=== PATIENT | male | born 1945 | race Caucasian/White ===

== ENCOUNTER 2022-01-28 07:09 | Observation (INO) | payer MEDICARE, MEDICAID, SELFPAY ==
[2022-01-28] VITALS (13 sets, daily range): BP systolic 111–172; BP diastolic 63–101; PULSE 64–95; RESP 13–24; TEMP 36.7–37.1; O2SAT 91–96; BMI 27.0; BMI 31.2
--- NOTE | 2022-01-28 07:10 | CTR_ITS ---
PROCEDURE INFORMATION: Exam: CT Head Without Contrast Exam date and time: 01/28/2022 7:09 AM Age: 73 years old Clinical indication: Weakness, extremity; Right; Additional info: Right side weakness TECHNIQUE: Imaging protocol: Computed tomography of the head without contrast. Radiation optimization: All CT scans at this facility use at least one of these dose optimization techniques: automated exposure control; mA and/or kV adjustment per patient size (includes targeted exams where dose is matched to clinical indication); or iterative reconstruction. Other technique: STROKE PROTOCOL was implemented. COMPARISON: No relevant prior studies available. RADIATION DOSE METRICS: Total DLP (mGy-cm): 1091.78 FINDINGS: Brain: No acute hemorrhage identified. No large territorial areas of hypoattenuation concerning for ischemic infarct identified. No intracranial mass effect. Subcortical, subinsular, and periventricular white matter hypoattenuation likely consistent with mild chronic microvascular ischemic disease. Cerebral ventricles: The ventricles are within normal limits. Paranasal sinuses: The visualized sinuses are unremarkable. Mastoid air cells: The visualized mastoid air cells are well aerated. Bones/joints: The osseous structures are intact. Soft tissues: Unremarkable. CT/CT head wo con* [id number] IMPRESSION: 1. No acute intracranial abnormality. 2. Mild chronic microvascular ischemic disease. ASSESSMENT: ASPECTS ([place] Stroke Program Early CT Score) is 10.
--- NOTE | 2022-01-28 07:15 | CTR_ITS ---
PROCEDURE INFORMATION: Exam: CTA Head With Contrast, Arteriography Exam date and time: 01/28/2022 8:46 AM Age: 76 years old Clinical indication: Weakness; Additional info: R sided weakness TECHNIQUE: Imaging protocol: Computed tomographic angiography of the head with contrast. Exam focused on the arteries. 3D rendering (Not supervised by radiologist): MIP and/or 3D reconstructed images were created by the technologist. Radiation optimization: All CT scans at this facility use at least one of these dose optimization techniques: automated exposure control; mA and/or kV adjustment per patient size (includes targeted exams where dose is matched to clinical indication); or iterative reconstruction. Contrast material: OMNI 350; Contrast volume: 95 ml; Contrast route: INTRAVENOUS (IV); COMPARISON: CT head wo con* [id number] 01/28/2022 7:09 AM RADIATION DOSE METRICS: Total DLP (mGy-cm): 514.2 FINDINGS: ANTERIOR CIRCULATION: Right internal carotid artery: Unremarkable. Intracranial segment is patent with no significant stenosis. No aneurysm. Right middle cerebral artery: Unremarkable. No occlusion or significant stenosis. No aneurysm. Right anterior cerebral artery: Unremarkable. No occlusion or significant stenosis. No aneurysm. Left internal carotid artery: Unremarkable. Intracranial segment is patent with no significant stenosis. No aneurysm. Left middle cerebral artery: Unremarkable. No occlusion or significant stenosis. No aneurysm. Left anterior cerebral artery: Unremarkable. No occlusion or significant stenosis. No aneurysm. POSTERIOR CIRCULATION: Right vertebral artery: Narrowing of the right vertebral artery at the entrance to the skull base with the left vertebral artery remaining dominant. The remainder of the right vertebral artery is unremarkable. Left vertebral artery: Left vertebral artery is dominant compared to the right. Basilar artery: Unremarkable. No occlusion or significant stenosis. No aneurysm. Right posterior cerebral artery: Unremarkable. No occlusion or significant stenosis. No aneurysm. Left posterior cerebral artery: Unremarkable. No occlusion or significant stenosis. No aneurysm. Brain: No definite mass, mass effect, or midline shift. Cerebral ventricles: No ventriculomegaly. Bones/joints: Unremarkable. No acute fracture. Soft tissues: Unremarkable. PROCEDURE INFORMATION: Exam: CTA Neck With Contrast Exam date and time: 01/28/2022 8:46 AM Age: 76 years old Clinical indication: Weakness; Additional info: R sided weakness TECHNIQUE: Imaging protocol: Computed tomographic angiography of the neck with contrast. 3D rendering (Not supervised by radiologist): MIP and/or 3D reconstructed images were created by the technologist. Radiation optimization: All CT scans at this facility use at least one of these dose optimization techniques: automated exposure control; mA and/or kV adjustment per patient size (includes targeted exams where dose is matched to clinical indication); or iterative reconstruction. Contrast material: OMNI 350; Contrast volume: 95 ml; Contrast route: INTRAVENOUS (IV); COMPARISON: CT head wo con* [id number] 01/28/2022 7:09 AM RADIATION DOSE METRICS: Total DLP (mGy-cm): 514.2 FINDINGS: Right common carotid artery: No stenosis. No dissection or occlusion. Right internal carotid artery: Calcified atherosclerotic disease at the origin of the right internal carotid artery causing moderate short segment stenosis. Right external carotid artery: No occlusion or stenosis of the origin. Left common carotid artery: No stenosis. No dissection or occlusion. Left internal carotid artery: No stenosis of the extracranial segment. No dissection or occlusion. Left external carotid artery: No occlusion or stenosis of the origin. Right vertebral artery: No stenosis. No dissection or occlusion. Left vertebral artery: No stenosis. No dissection or occlusion. Thyroid: Multiple hypoattenuating nodules noted in the thyroid, the largest of which measures up to approximately 1 cm on the left. Soft tissues: Normal. No significant soft tissue swelling. Bones/joints: No acute fracture. Lungs: Respiratory motion limiting fine pulmonary detail. CT/CT angio headneck* [id number] IMPRESSION: No significant arterial abnormality identified in the brain. IMPRESSION: Moderate short segment stenosis in the proximal right internal carotid artery. COMMENTS: Consistent with the [employer]'s Incidental Findings Committee white paper (J Am Andrzej Radiol 2015): In patients aged 35 years and older with an incidental thyroid nodule equal to or greater than 1.[address], MRI or extrathyroidal US, further evaluation with dedicated thyroid US is recommended for patients with normal life expectancy and without comorbidities. For smaller nodules without suspicious features, no further evaluation or follow up is recommended. REFERENCES: NASCET CRITERIA. The degree of internal carotid artery stenosis is based on NASCET criteria. Normal is no stenosis. Mild is less than 50% stenosis. Moderate is 50-69% stenosis. Severe is 70% to 99% stenosis. Total occlusion is no detectable patent lumen.
--- NOTE | 2022-01-28 07:15 | ECG_ITS ---
[facility] Test Date: 2022-01-28 Pat Name: Stu Mcgrath Department: Room: Gender: Male Titrator: : 1945 Requested By: Dante Barone Order Number: [id number] Otf MD: Yuni Sheets M.D. Measurements Intervals [place] Rate: 80 P: IN: QRS: 72 QRSD: 109 T: 3 QT: 365 QTc: 423 Interpretive Statements ATRIAL FIBRILLATION INCOMPLETE RIGHT BUNDLE BRANCH BLOCK [90+ ms QRS DURATION, TERMINAL R IN V1/V2, 40+ ms S IN I/aVL/V4/V5/V6] NONSPECIFIC ST & T-WAVE ABNORMALITY ABNORMAL RHYTHM ECG No previous ECG available for comparison Electronically Signed On 01-30-2022 8:03:06 CDT by Yuni Sheets M.D. [id number] connor
--- NOTE | 2022-01-28 07:17 | W.ED.NEUROSD ---
HPI - Neuro Symptoms/Deficit General: Chief Complaint: Neuro Symptoms/Deficit Stated Complaint: RIGHT SIDE WEAKNESS Time Seen by Provider: 01/28/22 07:09 Source: patient Mode of arrival: ambulatory History of Present Illness: 76-year-old male presents via EMS. Reported that he awoke around 6 AM in his normal state and then started vomiting and had some right sided facial droop and right arm drift EMS was called. They verified these findings on the scene however noticed doing bedside stroke score medic was at the bedside and reported that his deficits that were present previously had resolved as he watched me do the NIH scoring. Patient is awake and alert. He answers all questions appropriately there is a little bit of a knowledge deficit and following directions but the remainder of his testing is normal. Even if his assigned a point for not following directions he has an NIH score of only 1 and I believe this is a knowledge deficit rather than a new focal deficit. He otherwise is asymptomatic he denies chest pain or shortness of breath patient does have a history of atrial fibrillation and tells me he is on a blood thinner but does not know the name of it. Onset (ago): hour(s) Time: 07:09 Last Observed Normal: 06:00 Location: speech, left face and left arm History of same: No Severity: mild Quality: weak Relieving factors: time Exacerbating factors: none Context: sudden onset Associated symptoms: Deny chest pain, cough, diaphoresis, fevers/chills, headache(s), anorexia, malaise, nausea, seizures, short of breath, syncope, tingling, vertigo, vomiting or weakness Treatments Prior to Arrival: none Review of Systems Const: Denies: fever(s), chills, fatigue, malaise or diaphoresis ENMT: Denies: throat pain, ear or mastoid pain, nasal discharge or nasal congestion Card: Denies: chest pain, palpitations or syncope Resp: Denies: dyspnea, productive cough or non-productive cough GI: Denies: nausea or vomiting : Denies: flank pain, dysuria, urinary frequency or urinary urgency Skin/Breast: Denies: rash or pruritus Neuro: Denies: headache(s) or vertigo NIH stroke score NIHSS: Level Of Consciousness - 1a: 0 Level Of Consciousness Questions - 1b: Both Correct Level Of Consciousness Commands - 1c: Both Correct Best Gaze - 2: Normal (Does not appear to be any deficits however patient has difficulty understanding the test) Visual Lipscomb - 3: No Visual Loss Facial Palsy - 4: Normal Motor Arm Right - 5: No Drift Motor Arm Left - 5: No Drift Motor Leg Right - 6: No Drift Motor Leg Left - 6: No Drift Limb Ataxia - 7: Absent Sensory - 8: Normal Best Language - 9: No Aphasia Dysarthia - 10: Normal Extinction And Inattention - 11: 1 (Patient has difficult time understanding instructions and following commands but will do it with reinforcement) Score: Total Score: 1 Course Vital Signs: Vital signs: Vital Signs Temperature 98.8 F 01/28/22 07:21 Pulse Rate 95 01/28/22 10:57 Respiratory Rate 21 H 01/28/22 10:57 Blood Pressure 169/89 01/28/22 10:57 Pulse Oximetry 92 01/28/22 10:57 Oxygen Delivery Me thod 01/28/22 10:57 Oxygen Flow Rate 2 01/28/22 10:57 MDM - Neuro Symptoms/Deficit Medical Decision Making Line Supply that initially seen the patient in the field is at the bedside when I did my NIH score. He is describing deficits that have resolved and 1 witnessing are scoring he identified the deficits that had resolved. Get a stroke score of 1 at the time I see him in the bedside but the medics had a stroke score of from her description sounds like about a 6 or 7. He did resolve relatively quickly and his CTA of his head is negative. He is already on Pradaxa. There is no emboli or large vessel occlusions only some moderate stenosis. Discussed with neurology we will go and observe patient make any adjustments needed for secondary prevention. Medical Records I reviewed the patient's medical records. Lab Data I reviewed the patient's lab results. : 01/28/22 06:50 01/28/22 06:[address] 01/28/22 07:10 IMPRESSION: 1. No acute intracranial abnormality. 2. Mild chronic microvascular ischemic disease. ASSESSMENT: ASPECTS ([place] Stroke Program Early CT Score) is 10. Head/Neck CTA 01/28/22 07:15 IMPRESSION: No significant arterial abnormality identified in the brain. IMPRESSION: Moderate short segment stenosis in the proximal right internal carotid artery. COMMENTS: Consistent with the [employer]'s Incidental Findings Committee white paper (J Am Andrzej Radiol 2015): In patients aged 35 years and older with an incidental thyroid nodule equal to or greater than 1.[address], MRI or extrathyroidal US, further evaluation with dedicated thyroid US is recommended for patients with normal life expectancy and without comorbidities. For smaller nodules without suspicious features, no further evaluation or follow up is recommended. REFERENCES: NASCET CRITERIA. The degree of internal carotid artery stenosis is based on NASCET criteria. Normal is no stenosis. Mild is less than 50% stenosis. Moderate is 50-69% stenosis. Severe is 70% to 99% stenosis. Total occlusion is no detectable patent lumen. Chest X-Ray 01/28/22 10:50 IMPRESSION: No acute findings. Laboratory Results WBC 6.1 10^3/uL (4.0-10.0) 01/28/22 06:50 RBC 4.87 10^6/uL (4.1-5.3) 01/28/22 06:50 Hgb 12.9 g/dL (11.7-16.6) 01/28/22 06:50 Hct 39.7 % (42.0-52.0) L 01/28/22 06:50 MCV 81.5 fl (80-94) 01/28/22 06:50 MCH 26.5 pg (28.0-34.0) L 01/28/22 06:50 MCHC 32.5 g/dL (30.0-36.0) 01/28/22 06:50 RDW 16.5 % (12.1-15.1) H 01/28/22 06:50 Plt Count 234 10^3/cmm (130-400) 01/28/22 06:50 MPV 10.1 fL (7.4-10.4) 01/28/22 06:50 Neut % (Auto) 48.7 % 01/28/22 06:50 Lymph % (Auto) 26.5 % 01/28/22 06:50 [place] % (Auto) 22.5 % 01/28/22 06:50 Eos % (Auto) 1.5 % 01/28/22 06:50 Baso % (Auto) 0.5 % 01/28/22 06:50 Neut # (Auto) 2.98 10^3/uL (1.8-7.7) 01/28/22 06:50 Lymph # (Auto) 1.6 10^3/uL (0.8-4.8) 01/28/22 06:50 [place] # (Auto) 1.4 10^3/uL (0.2-0.9) H 01/28/22 06:50 Eos # (Auto) 0.1 10^3/uL (0.0-0.8) 01/28/22 06:50 Baso # (Auto) 0.0 10^3/uL (0.0-0.1) 01/28/22 06:50 Nucleated RBC % (auto) 0 % 01/28/22 06:50 Nucleated RBCs # 0.0 /100WBC 01/28/22 06:50 PT 16.20 SECONDS (12.1-14.9) H 01/28/22 06:50 INR 1.27 (0.8-1.2) H 01/28/22 06:50 APTT 40.5 SECONDS (23.9-36.7) H 01/28/22 06:50 Sodium 132 mmol/L (136-145) L 01/28/22 06:50 Potassium 3.6 mmol/L (3.5-5.1) 01/28/22 06:50 Chloride 93 mmol/L (98-107) L 01/28/22 06:50 Carbon Dioxide 23 mmol/L (22-29) 01/28/22 06:50 Anion Gap 19.6 (5-19) H 01/28/22 06:50 BUN 13 mg/dL (8-23) 01/28/22 06:50 Creatinine 1.3 mg/dL (0.7-1.2) H 01/28/22 06:50 GFR Calculation Not Reportable 01/28/22 06:50 Glucose 159 mg/dL (65-115) H 01/28/22 06:50 POC Glucose 165 mg/dL (70-110) H 01/28/22 07:24 Calculated Osmolality 277 mOsm/kg (285-295) L 01/28/22 06:50 Calcium 9.3 mg/dL (8.5-10.5) 01/28/22 06:50 Total Bilirubin 0.4 mg/dL (0.15-1.2) 01/28/22 06:50 AST 20 U/L (0-40) 01/28/22 06:50 ALT 18 U/L (0-41) 01/28/22 06:50 Alkaline Phosphatase 97 U/L (40-130) 01/28/22 06:50 Total Protein 7.2 g/dL (6.6-8.7) 01/28/22 06:50 Albumin 4.6 g/dL (3.5-5.2) 01/28/22 06:50 Globulin 2.6 g/dL (1.3-4.6) 01/28/22 06:50 Urine Color Straw (Yellow) 01/28/22 07:54 Urine Appearance Clear (CLEAR) 01/28/22 07:54 Urine pH 7 (5-7) 01/28/22 07:54 Ur Specific [place] 1.005 (1.005-1.030) 01/28/22 07:54 Urine Protein 3+ (Negative) H 01/28/22 07:54 Urine Glucose (UA) Norm (Normal) 01/28/22 07:54 Urine Ketones 1+ (Negative) H 01/28/22 07:54 Urine Blood 2+ (Negative) H 01/28/22 07:54 Urine Nitrate Negative (Negative) 01/28/22 07:54 Urine Bilirubin Neg (Negative) 01/28/22 07:54 Urine Urobilinogen Norm mg/dL (Negative) 01/28/22 07:54 Ur Leukocyte Esterase Negative (Negative) 01/28/22 07:54 Urine RBC 10-15 /hpf (0-2) H 01/28/22 07:54 Urine WBC 0-4 /hpf (0-5) H 01/28/22 07:54 Ur Squamous Epith Cells Rare /hpf (0-5) 01/28/22 07:54 Amorphous Sediment Not Reportable 01/28/22 07:54 Urine Bacteria Trace /hpf (NONE) 01/28/22 07:54 Urine Mucus Trace /hpf 01/28/22 07:54 Urine Opiates Screen Negative ng/mL (Negative) 01/28/22 07:54 Ur Barbiturates Screen Negative ng/mL (Negative) 01/28/22 07:54 Ur Phencyclidine Scrn Negative ng/mL (Negative) 01/28/22 07:54 Ur Amphetamines Screen Negative ng/mL (Negative) 01/28/22 07:54 U Benzodiazepines Scrn Negative ng/mL (Negative) 01/28/22 07:54 Urine Cocaine Screen Negative ng/mL (Negative) 01/28/22 07:54 U Marijuana (THC) Screen Negative ng/mL (Negative) 01/28/22 07:54 Discharge Plan Discharge Patient Disposition: Placed in Observation Clinical Impression: Transient cerebral ischemia Condition: Stable Prescriptions: No Action furosemide 40 mg tablet 40 mg PO DAILY metformin 500 mg tablet 500 mg PO BID hydralazine 25 mg tablet 25 mg PO BID omeprazole 40 mg capsule,delayed release(DR/EC) 40 mg PO BID potassium chloride 20 mEq tablet,ER particles/crystals 20 meq PO BID tamsulosin 0.4 mg capsule 0.4 mg PO BID amlodipine 10 mg tablet 10 mg PO DAILY aspirin 81 mg Tablet,Chewable 81 mg PO EVERY OTHER DAY lisinopril 40 mg tablet 40 mg PO DAILY rosuvastatin 10 mg tablet 10 mg PO DAILY Pradaxa 150 mg capsule 150 mg PO BID Coding Level of Care Code ED Telephone Clerks Supervisor for Libby Sandoval
[2022-01-28 07:28] LABS: Glucose Point of Care 165 mg/dL (70-110)
[2022-01-28 08:06] LABS: Basophils % 0.5 %; Eosinophils # 0.1 10^3/uL (0.0-0.8); Eosinophils % 1.5 %; Hematocrit 39.7 % (42.0-52.0); Hemoglobin 12.9 g/dL (11.7-16.6); Lymphocytes # 1.6 10^3/uL (0.8-4.8); Lymphocytes % 26.5 %; Mean Corpuscular HGB Conc 32.5 g/dL (30.0-36.0); Mean Corpuscular Hemoglobin 26.5 pg (28.0-34.0); Mean Corpuscular Volume 81.5 fl (80-94); Mean Platelet Volume 10.1 fL (7.4-10.4); Monocytes # 1.4 10^3/uL (0.2-0.9); Monocytes % 22.5 %; Neutrophils # 2.98 10^3/uL (1.8-7.7); Neutrophils % 48.7 %; Nucleated Red Blood Cells % 0 %; Platelet Count 234 10^3/cmm (130-400); Red Blood Count 4.87 10^6/uL (4.1-5.3); Red Cell Distribution Width 16.5 % (12.1-15.1); White Blood Count 6.1 10^3/uL (4.0-10.0)
[2022-01-28 08:16] LABS: Amphetamines Screen Urine Negative (Negative); Barbiturates Screen Urine Negative (Negative); Benzodiazepines Screen Urine Negative (Negative); Cocaine Screen Urine Negative (Negative); Opiate Screen Urine Negative (Negative); PCP Screen Urine Negative (Negative); THC Screen Urine Negative (Negative)
[2022-01-28 08:30] LABS: INR 1.27 (0.8-1.2)
[2022-01-28 08:31] LABS: Partial Thromboplastin Time 40.5 SECONDS (23.9-36.7)
[2022-01-28 08:34] LABS: Alanine Aminotransferase 18 U/L (0-41); Albumin Level 4.6 g/dL (3.5-5.2); Alkaline Phosphatase 97 U/L (40-130); Anion Gap 19.6 (5-19); Aspartate Amino Transferase 20 U/L (0-40); Blood Urea Nitrogen 13 mg/dL (8-23); Calcium 9.3 mg/dL (8.5-10.5); Carbon Dioxide 23 mmol/L (22-29); Chloride 93 mmol/L (98-107); Globulin 2.6 g/dL (1.3-4.6); Glucose 159 mg/dL (65-115); Osmolality Calculated 277 mOsm/kg (285-295); Potassium 3.6 mmol/L (3.5-5.1); Sodium 132 mmol/L (136-145); Total Bilirubin 0.4 mg/dL (0.15-1.2); Total Protein 7.2 g/dL (6.6-8.7)
[2022-01-28 08:38] LABS: Blood Urine 2+ (Negative); Glucose Urine UA Norm (Normal); Ketones Urine 1+ (Negative); Protein Urine 3+ (Negative); Specific Gravity, Urine 1.005 (1.005-1.030); Urine Appearance Clear (CLEAR); Urine Color Straw (Yellow); pH Urine 7 (5-7)
[2022-01-28 08:39] LABS: Add Urine Microscopic? YES; Bilirubin Urine Neg (Negative); Leukocyte Esterase Urine Negative (Negative); Nitrate Urine Negative (Negative); Urobilinogen Urine Norm (Negative)
[2022-01-28 08:40] LABS: Bacteria Urine TRACE /hpf; Squamous Epithelial Cell Urine RARE /hpf (0-5); WBC Urine 0-4 /hpf (0-5)
[2022-01-28 08:41] LABS: Add Urine Culture? Yes; Mucus Urine TRACE /hpf
[2022-01-28] MEDS: iohexol 350 mg/mL 100 mL Btl IV (08:51)
[2022-01-28] MEDS: ondansetron 2 mg/ML SDV 2 mL 4 MG IVP (09:19)
--- NOTE | 2022-01-28 10:50 | XRR_ITS ---
PROCEDURE INFORMATION: Exam: XR Chest Exam date and time: 01/28/2022 10:56 AM Age: 76 years old Clinical indication: Cough and dyspnea; Additional info: Dyspnea/cough TECHNIQUE: Imaging protocol: Radiologic exam of the chest. Views: 1 view. COMPARISON: CT angio headneck* [id number] 01/28/2022 8:46 AM FINDINGS: Lungs: Granuloma is noted in the right upper lobe . Are are No consolidation. Pleural spaces: Unremarkable. No pleural effusion. No pneumothorax. Heart/Mediastinum: Unremarkable. No cardiomegaly. Bones/joints: Unremarkable. XR/XR chest 1V portable [id number] IMPRESSION: No acute findings.
[2022-01-28] MEDS: acetaminophen 325 mg Tablet 650 MG PO (12:22)
--- NOTE | 2022-01-28 15:34 | PC.NURSE ---
patient had a witnessed fall without injury family and notified
[2022-01-28] MEDS: potassium chloride ER 20 mEq Tablet PO (17:31)
[2022-01-28] MEDS: pantoprazole DR 40 mg Tablet PO (17:31)
[2022-01-28] MEDS: tamsulosin 0.4 mg Capsule PO (17:31)
[2022-01-28] MEDS: metformin 500 mg Tablet PO (17:31)
[2022-01-28] MEDS: cefdinir 300 MG CAPSULE PO (17:31)
[2022-01-28] MEDS: hyDRALAzine 25 mg Tablet PO (17:31)
[2022-01-28 17:35] LABS: Glucose Point of Care 137 mg/dL (70-110)
[2022-01-28] MEDS: sodium chloride 0.9% 1,000 ML 100 ML IV (17:36)
--- NOTE | 2022-01-28 20:23 | P.HP_ITS ---
Providers/Chief Complaint Admitting Physician: Jonathon Mckeon DO Chief Complaint: RIGHT SIDE WEAKNESS History of Present Illness Stu Mcgrath Jr is a 76 year old male with history of atrial fibrillation hypertension CHF and diabetes. With and daughter present I get a different story than given to the emergency room. was with patient this morning. To go to use the toilet, and he passed out. Patient has history of multiple syncopal events previously. Both and daughter who is an RN states that work-up has been negative with no etiology found. This includes a loop recorder. and daughter state the patient was unconscious for 25 minutes. He had a pulse and respirations that were normal. EMS was called. Per the daughter EMS thought maybe he could have a stroke because of a facial droop on the right. The patient is unable to give me a history. He is a bit confused. As per ER notes there was no focal deficit. CT head showed no cute changes. Positive chronic microvascular ischemic disease. At the time of my exam patient denies any complaints. He has been feeling well prior to this. No fever chills vomiting diarrhea. No cough no chest pain patient did have a mild headache that was imaged with Tylenol Review of Systems Const: Denies: fever(s) or chills Eyes: Denies: change in vision ENMT: Denies: throat pain or nasal congestion Card: Denies: chest pain or palpitations Resp: Denies: dyspnea or productive cough GI: Denies: abdominal pain, nausea, vomiting or change in stool character : Denies: difficulty urinating or dysuria Musc: Denies: back pain or extremity pain Skin/Breast: Denies: rash or lesions Neuro: Denies: dizziness Psych: Denies: anxiety or depression Faustino/Lymph: Denies: easy bruising or easy bleeding Medications/Allergies Home Medications Medication Instructions Recorded Confirmed Last Taken Type amlodipine 10 mg tablet 10 mg PO DAILY 01/28/22 01/28/22 01/27/22 History aspirin 81 mg chewable tablet 81 mg PO EVERY OTHER DAY 01/28/22 01/28/22 01/27/22 History dabigatran etexilate 150 mg 150 mg PO BID 01/28/22 01/28/22 01/27/22 History capsule (Pradaxa) furosemide 40 mg tablet 40 mg PO DAILY 01/28/22 01/28/22 01/27/22 History hydralazine 25 mg tablet 25 mg PO BID 01/28/22 01/28/22 01/27/22 History lisinopril 40 mg tablet 40 mg PO DAILY 01/28/22 01/28/22 01/27/22 History metformin 500 mg tablet 500 mg PO BID 01/28/22 01/28/22 01/27/22 History omeprazole 40 mg capsule,delayed 40 mg PO BID 01/28/22 01/28/22 01/27/22 History release potassium chloride 20 mEq 20 meq PO BID 01/28/22 01/28/22 01/27/22 History tablet,extended release(part/cryst) rosuvastatin 10 mg tablet 10 mg PO DAILY 01/28/22 01/28/22 01/27/22 History tamsulosin 0.4 mg capsule 0.4 mg PO BID 01/28/22 01/28/22 01/27/22 History Allergies Allergy/AdvReac Type Severity Reaction Status Date / Time morphine Allergy Severe ADR-Confusi Verified 01/28/22 08:54 on Penicillins Allergy Severe Unknown Verified 01/28/22 08:58 piperacillin [From Zosyn] Allergy Severe Unknown Verified 01/28/22 08:58 tazobactam [From Zosyn] Allergy Severe Unknown Verified 01/28/22 08:58 clonidine Allergy Unknown Unknown Verified 01/28/22 08:58 Vitals/I&O/Wt Last Vital Signs Temp 98.4 F 01/28/22 16:41 Pulse 67 01/28/22 16:41 Resp 23 H 01/28/22 13:25 BP 166/93 01/28/22 16:41 Pulse Ox 93 01/28/22 16:41 O2 Del Method 01/28/22 14:43 O2 Flow Rate 2 01/28/22 10:57 Weight last 48 hrs Weight 98.883 kg Weight 92.986 kg Physical Exam Narrative: The EHR has no list of past medical surgical family or social history. Thus we will perform at this time. Past missed medical history: Syncopal episodes, hypertension, atrial fibrillation, CHF, diabetes, GERD, hyperlipidemia. Past surgical history: Noncontributory at this time. Family history: Noncontributory at age 76. Social history. Lives with . Daughter is an RN with hospice. Denies tobacco alcohol or other drug use. In general patient appears his stated age of 76 he is in no acute distress at time of exam patient is hard of hearing. HEENT head is normocephalic atraumatic pupils are equal to light and accommodation extraocular muscles are intact there is no scleral icterus TMs are clear mucous membranes of the nasal and pharyngeal mucosa are moist and pink Neck is supple no JVD carotid bruits and lymphadenopathy Chest rises symmetrically with inspiration heart regular rate controlled normal S1-S2 without loud murmur. Lungs clear to auscultation without wheezes rales or rhonchi Abdomen soft nontender nondistended positive bowel sounds normal male Extremities no clubbing cyanosis or edema Neurologic. During NIH SS exam. Patient could not initially state his correct age or the correct month. I think due to hearing issues he was not able to repeat my sentence. No facial droop. Was a right arm drift. Otherwise his strength and sensation was intact. NIHSS was 3. Lymphatic no lymphadenopathy noted. No lesions or rash Data : 01/28/22 06:50 01/28/22 06:50 Micro: Microbiology 01/28/22 08:23 Blood Culture - Preliminary Blood SPECIMEN COLLECTED 01/28/22 08:27 Blood Culture - Preliminary Blood SPECIMEN COLLECTED CT Head: My impression: Possible cerebellar atrophy. Small vessel disease-moderate Radiologist's impression: IMPRESSION: 1. No acute intracranial abnormality. 2. Mild chronic microvascular ischemic disease. Other Imaging: Radiologist's impression: CTA head and neck. Short summary is no occlusions or stenosis is seen. Note multiple hypoattenuating nodules noted in the thyroid the largest of which measures up to approximately 1 cm on the left. EKG 1: My Interpretation: Atrial fibrillation Process Design Chemical Engineer Interpretation: Not read by cardiology yet EKG computer-generated impression: A&P Assessment and plan (1) Syncope and collapse: Unknown etiology. Most common are neurologic or cardiovascular. Patient has had extensive work-up in the past with no etiology identified. Questionable orthostatic hypotension or relative orthostasis upon arising. Telemetry and close monitoring. No further work-up at this time since has been worked up extensively in the past. Status: Acute (2) Cerebellar atrophy: History taken was no alcohol usage but I will inquire about history thereof. May require outpatient neurology work-up. Status: Acute (3) Cerebrovascular small vessel disease: Most likely secondary to hypertension. Status: Acute (4) Atrial fibrillation, chronic: Rate controlled currently Status: Acute (5) Hypertension: Patient on amlodipine Lasix hydralazine lisinopril. With the amount of small vessel disease seen on CAT scan may need to allow permissive hypertension to avoid syncope and to promote proved cognition Status: Acute (6) Confusion: I will ask for speech eval for cognitive function Status: Acute (7) Memory loss: As above Status: Acute (8) Hyponatremia: Mild will trend Status: Acute (9) Abnormal serum creatinine level: Mildly elevated at 1.3 no prior to compare Status: Acute (10) Thyroid nodule greater than or equal to 1 cm in diameter incidentally noted on imaging study: Check TSH work-up as an outpatient. Status: Acute Attestations Medical Necessity Statement*: Patient admitted for observation and work-up. Coding Level of Care Code Acute Promotional Representative for Chg Fwd Diagnoses Syncope and collapse R55 Cerebellar atrophy G31.9 Cerebrovascular small vessel disease I67.9 Atrial fibrillation, chronic I48.20 Hypertension I10 Confusion R41.0 Memory loss R41.3 Hyponatremia E87.1 Abnormal serum creatinine level R79.89 Thyroid nodule greater than or equal to 1 cm in diameter incidentally noted on imaging study E04.1
[2022-01-28 21:13] LABS: Glucose Point of Care 153 mg/dL (70-110)
[2022-01-29] VITALS: BP 168/100; PULSE 92; RESP 12; TEMP 37; O2SAT 91
[2022-01-29] MEDS: sodium chloride 0.9% 1,000 ML 100 ML IV (03:38)
[2022-01-29 04:00] VITALS: BP 164/84; PULSE 90; RESP 14; TEMP 37.1; O2SAT 93
[2022-01-29 05:40] LABS: Estmated Average Glucose 163; Hemoglobin A1C 7.3 % (4.0-6.0)
[2022-01-29 05:52] LABS: Anion Gap 15.3 (5-19); Blood Urea Nitrogen 12 mg/dL (8-23); Calcium 8.6 mg/dL (8.5-10.5); Carbon Dioxide 23 mmol/L (22-29); Chloride 99 mmol/L (98-107); Glucose 139 mg/dL (65-115); Osmolality Calculated 280 mOsm/kg (285-295); Potassium 3.3 mmol/L (3.5-5.1); Sodium 134 mmol/L (136-145); Thyroid Stimulating Hormone 0.59 uIU/mL (0.27-4.20)
[2022-01-29 06:00] VITALS: PULSE 81
[2022-01-29 06:16] LABS: Glucose Point of Care 152 mg/dL (70-110)
[2022-01-29 08:00] VITALS: BP 161/94; PULSE 84; RESP 17; TEMP 36.6; O2SAT 92
[2022-01-29] MEDS: metformin 500 mg Tablet PO (10:47)
[2022-01-29] MEDS: pantoprazole DR 40 mg Tablet PO (10:47)
[2022-01-29] MEDS: potassium chloride ER 20 mEq Tablet PO (10:47)
[2022-01-29] MEDS: tamsulosin 0.4 mg Capsule PO (10:48)
[2022-01-29] MEDS: hyDRALAzine 25 mg Tablet PO (10:48)
[2022-01-29] MEDS: cefdinir 300 MG CAPSULE PO (10:49)
[2022-01-29] MEDS: atorvastatin 40 mg Tablet PO (10:52)
[2022-01-29 12:00] VITALS: BP 151/100; PULSE 92; RESP 18; TEMP 36.5; O2SAT 95
[2022-01-29 14:00] VITALS: PULSE 96
--- NOTE | 2022-01-29 14:26 | PM.DCS ---
Discharge Providers Date of Admission: 01/28/22 11:04 Date of Discharge: January 29, 2022 Attending Provider at Admission: Jonathon Mckeon DO Attending Provider at Discharge: Jonathon Mckeon DO Consults: none Diagnoses at Discharge Discharge Diagnosis (1) Syncope and collapse: Status: Acute (2) Cerebellar atrophy: Status: Acute (3) Cerebrovascular small vessel disease: Status: Acute (4) Atrial fibrillation, chronic: Status: Acute (5) Hypertension: Status: Acute (6) Confusion: Status: Acute (7) Memory loss: Status: Acute (8) Hyponatremia: Status: Acute (9) Abnormal serum creatinine level: Status: Acute (10) Thyroid nodule greater than or equal to 1 cm in diameter incidentally noted on imaging study: Status: Acute Reason for Visit Reason for Visit: RIGHT SIDE WEAKNESS Brief History: [facility] [employer] [facility] [employer] [address] History & Physical Report Signed Patient: Stu Mcgrath Jr MR#: [id number] : 1945 Age/Sex: 76 / M ADM Date: 01/28/22 Loc: [facility]? Room/Bed: [facility] Encounter Date: 01/28/[address]: Jonathon Mckeon DO Report Number: [id number] Providers/Chief Complaint Admitting Physicia n:?? Jonathon Mckeon DO ? Chief Complaint:?? RIGHT SIDE WEAKNES S History of Present Illness Stu Mcgrath Jr is a 76 year old male with history of atrial fibrillation hypertension CHF and diabetes.? With and daughter present I get a different story than given to the emergency room.? was with patient this morning.? To go to use the toilet, and he passed out.? Patient has history of multiple syncopal events previously.? Both and daughter who is an RN states that work-up has been negative with no etiology found.? This includes a loop recorder. and daughter state the patient was unconscious for 25 minutes.? He had a pulse and respirations that were normal.? EMS was called. Per the daughter EMS thought maybe he could have a stroke because of a facial droop on the right. The patient is unable to give me a history.? He is a bit confused. As per ER notes there was no focal deficit.? CT head showed no cute changes.? Positive chronic microvascular ischemic disease. At the time of my exam patient denies any complaints.? He has been feeling well prior to this.? No fever chills vomiting diarrhea.? No cough no chest pain patient did have a mild headache that was imaged with Tylenol Hospital Course Hospital Course Patient was admitted for I allowed permissive hypertension secondary to the moderate small vessel ischemic changes noted on CT scan of the head. I also noted cerebellar atrophy out of proportion to age-related changes. Patient has not had any further falls or syncopal events. I ordered PT OT and speech for evaluations. Patient agreed to physical therapy and was given instructions to assist with balance. However patient refused EXPENSE CLERK. I called the patient's daughter Peg who is an RN. I explained to her the findings on CAT scan. I suspect moderate atherosclerosis of the cerebral arteries and perhaps a neurodegenerative disease as well. He is notably confused at times. The daughter concurs with this. Recommend the next steps of speech-language pathology or a neurology consult or even a neuropsych consult to help with differentiating dementia from other neurodegenerative disease. Allow permissive hypertension to avoid all/syncope. Of note the patient's blood pressure was 111/87 around the time that he fell yesterday. Recommend goal systolic blood pressure 1 40-1 60. Goal diastolic less than 105. Patient was on 4 antihypertensives prior to admission. I have stopped Norvasc and hydralazine. I recommend cutting lisinopril in half to 20 mg daily and continuing Lasix 40 mg daily. Please follow-up with BMP and magnesium on Sunday. Physical Exam Narrative: NAD heart regular rate controlled normal S1-S2 without loud murmur. Lungs clear to auscultation without wheezes rales or rhonchi Abdomen soft nontender nondistended positive bowel sounds Extremities no clubbing cyanosis or edema Neurologic. Appears back to baseline. Which includes repetition of information. Discharge Data Studies Completed and Pending Completed Studies During Hospitalization Category Date Time Status CT angio headneck* [id number] Stat Cat Scan 01/28/22 07:[address] head wo con* [id number] Stat Cat Scan 01/28/22 07:10 Completed XR chest 1V portable [id number] Stat Exams 01/28/22 10:50 Completed Pending at discharge Category Date Time Status Basic Metabolic Panel AM LABS Lab 01/30/22 04:00 Ordered Basic Metabolic Panel AM LABS Lab 01/31/22 04:00 Ordered Blood Culture Stat Lab 01/28/22 08:23 Results Urine Culture Stat Lab 01/28/22 07:54 Results Radiology Impressions Head CT 01/28/22 07:10 IMPRESSION: 1. No acute intracranial abnormality. 2. Mild chronic microvascular ischemic disease. ASSESSMENT: ASPECTS ([place] Stroke Program Early CT Score) is 10. Head/Neck CTA 01/28/22 07:15 IMPRESSION: No significant arterial abnormality identified in the brain. IMPRESSION: Moderate short segment stenosis in the proximal right internal carotid artery. COMMENTS: Consistent with the [employer]'s Incidental Findings Committee white paper (J Am Andrzej Radiol 2015): In patients aged 35 years and older with an incidental thyroid nodule equal to or greater than 1.[address], MRI or extrathyroidal US, further evaluation with dedicated thyroid US is recommended for patients with normal life expectancy and without comorbidities. For smaller nodules without suspicious features, no further evaluation or follow up is recommended. REFERENCES: NASCET CRITERIA. The degree of internal carotid artery stenosis is based on NASCET criteria. Normal is no stenosis. Mild is less than 50% stenosis. Moderate is 50-69% stenosis. Severe is 70% to 99% stenosis. Total occlusion is no detectable patent lumen. Chest X-Ray 01/28/22 10:50 IMPRESSION: No acute findings. Laboratory Results WBC 6.1 10^3/uL (4.0-10.0) 01/28/22 06:50 RBC 4.87 10^6/uL (4.1-5.3) 01/28/22 06:50 Hgb 12.9 g/dL (11.7-16.6) 01/28/22 06:50 Hct 39.7 % (42.0-52.0) L 01/28/22 06:50 MCV 81.5 fl (80-94) 01/28/22 06:50 MCH 26.5 pg (28.0-34.0) L 01/28/22 06:50 MCHC 32.5 g/dL (30.0-36.0) 01/28/22 06:50 RDW 16.5 % (12.1-15.1) H 01/28/22 06:50 Plt Count 234 10^3/cmm (130-400) 01/28/22 06:50 MPV 10.1 fL (7.4-10.4) 01/28/22 06:50 Neut % (Auto) 48.7 % 01/28/22 06:50 Lymph % (Auto) 26.5 % 01/28/22 06:50 [place] % (Auto) 22.5 % 01/28/22 06:50 Eos % (Auto) 1.5 % 01/28/22 06:50 Baso % (Auto) 0.5 % 01/28/22 06:50 Neut # (Auto) 2.98 10^3/uL (1.8-7.7) 01/28/22 06:50 Lymph # (Auto) 1.6 10^3/uL (0.8-4.8) 01/28/22 06:50 [place] # (Auto) 1.4 10^3/uL (0.2-0.9) H 01/28/22 06:50 Eos # (Auto) 0.1 10^3/uL (0.0-0.8) 01/28/22 06:50 Baso # (Auto) 0.0 10^3/uL (0.0-0.1) 01/28/22 06:50 Nucleated RBC % (auto) 0 % 01/28/22 06:50 Nucleated RBCs # 0.0 /100WBC 01/28/22 06:50 PT 16.20 SECONDS (12.1-14.9) H 01/28/22 06:50 INR 1.27 (0.8-1.2) H 01/28/22 06:50 APTT 40.5 SECONDS (23.9-36.7) H 01/28/22 06:50 Sodium 134 mmol/L (136-145) L 01/29/22 05:04 Potassium 3.3 mmol/L (3.5-5.1) L 01/29/22 05:04 Chloride 99 mmol/L (98-107) 01/29/22 05:04 Carbon Dioxide 23 mmol/L (22-29) 01/29/22 05:04 Anion Gap 15.3 (5-19) 01/29/22 05:04 BUN 12 mg/dL (8-23) 01/29/22 05:04 Creatinine 0.8 mg/dL (0.7-1.2) 01/29/22 05:04 GFR Calculation Not Reportable 01/29/22 05:04 Glucose 139 mg/dL (65-115) H 01/29/22 05:04 POC Glucose 152 mg/dL (70-110) H 01/29/22 06:06 Estimat Average Glucose 163 01/29/22 05:04 Hemoglobin A1c 7.3 % (4.0-6.0) H 01/29/22 05:04 Calculated Osmolality 280 mOsm/kg (285-295) L 01/29/22 05:04 Calcium 8.6 mg/dL (8.5-10.5) 01/29/22 05:04 Total Bilirubin 0.4 mg/dL (0.15-1.2) 01/28/22 06:50 AST 20 U/L (0-40) 01/28/22 06:50 ALT 18 U/L (0-41) 01/28/22 06:50 Alkaline Phosphatase 97 U/L (40-130) 01/28/22 06:50 Total Protein 7.2 g/dL (6.6-8.7) 01/28/22 06:50 Albumin 4.6 g/dL (3.5-5.2) 01/28/22 06:50 Globulin 2.6 g/dL (1.3-4.6) 01/28/22 06:50 TSH 0.59 uIU/mL (0.27-4.20) 01/29/22 05:04 Urine Color Straw (Yellow) 01/28/22 07:54 Urine Appearance Clear (CLEAR) 01/28/22 07:54 Urine pH 7 (5-7) 01/28/22 07:54 Ur Specific [place] 1.005 (1.005-1.030) 01/28/22 07:54 Urine Protein 3+ (Negative) H 01/28/22 07:54 Urine Glucose (UA) Norm (Normal) 01/28/22 07:54 Urine Ketones 1+ (Negative) H 01/28/22 07:54 Urine Blood 2+ (Negative) H 01/28/22 07:54 Urine Nitrate Negative (Negative) 01/28/22 07:54 Urine Bilirubin Neg (Negative) 01/28/22 07:54 Urine Urobilinogen Norm mg/dL (Negative) 01/28/22 07:54 Ur Leukocyte Esterase Negative (Negative) 01/28/22 07:54 Urine RBC 10-15 /hpf (0-2) H 01/28/22 07:54 Urine WBC 0-4 /hpf (0-5) H 01/28/22 07:54 Ur Squamous Epith Cells Rare /hpf (0-5) 01/28/22 07:54 Amorphous Sediment Not Reportable 01/28/22 07:54 Urine Bacteria Trace /hpf (NONE) 01/28/22 07:54 Urine Mucus Trace /hpf 01/28/22 07:54 Urine Opiates Screen Negative ng/mL (Negative) 01/28/22 07:54 Ur Barbiturates Screen Negative ng/mL (Negative) 01/28/22 07:54 Ur Phencyclidine Scrn Negative ng/mL (Negative) 01/28/22 07:54 Ur Amphetamines Screen Negative ng/mL (Negative) 01/28/22 07:54 U Benzodiazepines Scrn Negative ng/mL (Negative) 01/28/22 07:54 Urine Cocaine Screen Negative ng/mL (Negative) 01/28/22 07:54 U Marijuana (THC) Screen Negative ng/mL (Negative) 01/28/22 07:54 Vitals Last Vital Signs Temp 97.7 F 01/29/22 12:00 Pulse 92 01/29/22 12:00 Resp 18 01/29/22 12:00 BP 151/100 01/29/22 12:00 Pulse Ox 95 01/29/22 12:00 O2 Del Method 01/29/22 12:00 O2 Flow Rate 2 01/28/22 20:00 Discharge Plan Discharge Patient Disposition: Home Condition: Stable Prescriptions: New lisinopril 20 mg tablet 20 mg PO DAILY Qty: 30 0RF Continued furosemide 40 mg tablet 40 mg PO DAILY metformin 500 mg tablet 500 mg PO BID omeprazole 40 mg capsule,delayed release(DR/EC) 40 mg PO BID potassium chloride 20 mEq tablet,ER particles/crystals 20 meq PO BID tamsulosin 0.4 mg capsule 0.4 mg PO BID aspirin 81 mg Tablet,Chewable 81 mg PO EVERY OTHER DAY rosuvastatin 10 mg tablet 10 mg PO DAILY Pradaxa 150 mg capsule 150 mg PO BID Discontinued hydralazine 25 mg tablet 25 mg PO BID amlodipine 10 mg tablet 10 mg PO DAILY lisinopril 40 mg tablet 40 mg PO DAILY Discharge Orders: Discharge Order (Routine); Ordered 01/29/22 Ordered By: Jonathon Mckeon Other Ambulatory Orders: DME: [facility] (Order) Location: None Selected Ordered By: Jonathon Mckeon Referrals: [facility] [place] [Outside] Discharge Diet: Usual diet Discharge Activity: Increase activity as tolerated and As per PT/OT instructions Activity Restrictions/Additional Instructions: Patient diagnosed with moderate degree of arterial sclerosis in addition to cerebellar atrophy out of proportion to age-related changes. It is likely that this combination is resulting in falls/syncope. It is advised that we allow permissive hypertension for improved per fusion of the brain. Goal systolic blood pressure would be 140?160. And diastolic blood pressure below 105. Recommend speech and language pathology examination to assist with diagnosis of suspected dementia. This may be cardiovascular related. Neurology consult could assist or perhaps a neuropsych evaluation would be indicated. Patient was on 4 blood pressure medications prior to coming in. We will stop Norvasc and hydralazine. Decrease lisinopril by half and maintain Lasix BP and magnesium should be checked on Sunday. Discharge Attestations Time Spent in Discharge Care*: greater than 30 min Quality Metrics Clinical Quality Measures [ No reported AMI, CVA or VTE this stay] Coding Level of Care Code Acute g FW DC note Diagnoses Syncope and collapse R55 Cerebellar atrophy G31.9 Cerebrovascular small vessel disease I67.9 Atrial fibrillation, chronic I48.20 Hypertension I10 Confusion R41.0 Memory loss R41.3 Hyponatremia E87.1 Abnormal serum creatinine level R79.89 Thyroid nodule greater than or equal to 1 cm in diameter incidentally noted on imaging study E04.1
== END 2022-01-29 15:15 | disposition home or self-care (01) ==
LOC: ER 12:15 → MEDSURG 14:12
PROVIDERS: Admitting Provider Internal Medicine; Emergency Provider Family Medicine; Visit Provider Internal Medicine
DX: R55 Syncope and collapse (principal); G31.9 Degenerative disease of nervous system, unspecified; I67.9 Cerebrovascular disease, unspecified; I48.20 Chronic atrial fibrillation, unspecified; I45.10 Unspecified right bundle-branch block; R41.0 Disorientation, unspecified; R41.3 Other amnesia; E87.1 Hypo-osmolality and hyponatremia; R79.89 Other specified abnormal findings of blood chemistry; E04.1 Nontoxic single thyroid nodule; I11.0 Hypertensive heart disease with heart failure; I50.9 Heart failure, unspecified; E11.9 Type 2 diabetes mellitus without complications
CPT/HCPCS: 36415; 36416; 70450; 70496; 70498; 71045; 80048; 80053; 80306; 81001; 82962; 83036; 84443; 85025; 85610; 85730; 87040; 87086; 92523; 93005; 96374; 97116; 97161; 97165; 97530; 99285; G0378; J2405; J7030; Q9967